=== PATIENT | male | born 1940 | race Caucasian/White ===

== ENCOUNTER 2016-11-06 07:14 | Day surgery (SDC) | payer MEDICARE ==
[~2016-11-06] VITALS: Ht 170.2 cm; Wt 88.5 kg
[2016-11-06 07:55] LABS: HEMOGLOBIN 12.9 g/dL (14.1-18.0); LYMPH # 1.3 K/mm3 (0.7-4.5); LYMPH % 19.1 % (10-50)
[2016-11-06 08:01] LABS: BUN 13 mg/dL (7-18); GFR (ESTIMATED) 53 ML/MIN (>60)
--- NOTE | 2016-11-06 10:22 | Operative Note ---
Pacemaker Procedure performed: Pacemaker placement Date of procedure: 11/06/16 Time: 1000 Preoperative Diagnosis: Symptomatic bradycardia Cardiac Arrest Indication for test: See above Complications: None EBL Less than 10 ml Technique: 1% Lidocaine with epinephrine used to anesthetize the left anterior aspect of the chest.Scalpel was used to make the initial cutaneous incision while electrocautery was used to dissect down into the fascia. The fascia was lifted off the pectoralis muscle and digitally manipulated creating a pocket for the pacemaker. The patient was then placed in Trendelenburg position and the subclavian vein was accessed via the Selinger technique. A 7 Tajik sheath was placed under fluoroscopic guidance into the subclavian vein. Following this, an additional wire was placed into the sheath. Now, with two wires inside the 7 [place] sheath, this sheath was removed, maintaining the two wires in the subclavian vein. The sheath and dilator was then placed over one of the wires while keeping the other wire in place within the subclavian vein. The dilator was removed from the sheath. Using fluoroscopic guidance, the ventricular lead was placed into the right ventricular apex, screwed and secured into place. Electronic interrogation proved acceptable thresholds and voltage within the lead. Using 3-0 silk, the ventricular lead was then secured into place. Lead was secured to the fascia using the 3-0 silk. Following this, the sheath was pealed away. An additional 7 Tajik fresh sheath and dilator was placed over the existing wire. Using fluoroscopic guidance, the atrial lead was then placed into the right atrial appendage and screwed and secured in place. Electrical interrogation demonstrated acceptable thresholds and voltage numbers. The atrial lead was then secured into place using 3-0 silk and then the lead was finally secured to the fascia. With both the atria and ventricular leads in place with acceptable thresholds and sensitivity, the atrial and ventricular leads were placed into the pacemaker generator. Pacemaker generator was then secured to the fascia using 3-0 silk. 1 gram of Ancef was used to flush the pocket. Following the pacemaker being secured to the fascia and in place, Monocryl was used to close the subcutaneous layers while radha were used to close the cutaneous layer. A pressure dressing was placed and the patient was transferred to the postop holding area in stable condition for postoperative care. Impression: Procedure 1. Pocket formation for PPM. 2. Placement of atrial sensing and pacing coil into the right atrial appendage. 3. Placement of ventricular sensing and pacing coil in the right ventricular apex. 4. Permanent PPM placement Interrogation: Generator [employer] Model # [id number] Serial # [id number] RA Model # [id number] Serial # [id number] P-wave 3.0 Impedance 560 Threshold 2.0 Pulse Width 0.4 mA RVA Model # [id number] Serial # [id number] R-wave >12 Impedance 730 Threshold 0.5 Pulse Width 0.4 mA Pacing Parameters: Mode: DDDR Base/Max Track: 70/120 Max Sensor No Diaphragmatic stimulation at 10 volts Plan: Routine post op care
--- NOTE | 2016-11-06 10:22 | Operative Note ---
Pacemaker Procedure performed: Pacemaker placement Date of procedure: 11/06/16 Time: 1000 Preoperative Diagnosis: Symptomatic bradycardia Cardiac Arrest Indication for test: See above Complications: None EBL Less than 10 ml Technique: 1% Lidocaine with epinephrine used to anesthetize the left anterior aspect of the chest.Scalpel was used to make the initial cutaneous incision while electrocautery was used to dissect down into the fascia. The fascia was lifted off the pectoralis muscle and digitally manipulated creating a pocket for the pacemaker. The patient was then placed in Trendelenburg position and the subclavian vein was accessed via the Selinger technique. A 7 Nigerian sheath was placed under fluoroscopic guidance into the subclavian vein. Following this, an additional wire was placed into the sheath. Now, with two wires inside the 7 Nigerian sheath, this sheath was removed, maintaining the two wires in the subclavian vein. The sheath and dilator was then placed over one of the wires while keeping the other wire in place within the subclavian vein. The dilator was removed from the sheath. Using fluoroscopic guidance, the ventricular lead was placed into the right ventricular apex, screwed and secured into place. Electronic interrogation proved acceptable thresholds and voltage within the lead. Using 3-0 silk, the ventricular lead was then secured into place. Lead was secured to the fascia using the 3-0 silk. Following this, the sheath was pealed away. An additional 7 Nigerian fresh sheath and dilator was placed over the existing wire. Using fluoroscopic guidance, the atrial lead was then placed into the right atrial appendage and screwed and secured in place. Electrical interrogation demonstrated acceptable thresholds and voltage numbers. The atrial lead was then secured into place using 3-0 silk and then the lead was finally secured to the fascia. With both the atria and ventricular leads in place with acceptable thresholds and sensitivity, the atrial and ventricular leads were placed into the pacemaker generator. Pacemaker generator was then secured to the fascia using 3-0 silk. 1 gram of Ancef was used to flush the pocket. Following the pacemaker being secured to the fascia and in place, Monocryl was used to close the subcutaneous layers while radha were used to close the cutaneous layer. A pressure dressing was placed and the patient was transferred to the postop holding area in stable condition for postoperative care. Impression: Procedure 1. Pocket formation for PPM. 2. Placement of atrial sensing and pacing coil into the right atrial appendage. 3. Placement of ventricular sensing and pacing coil in the right ventricular apex. 4. Permanent PPM placement Interrogation: Generator [employer] Model # [id number] Serial # [id number] RA Model # [id number] Serial # [id number] P-wave 3.0 Impedance 560 Threshold 2.0 Pulse Width 0.4 mA RVA Model # [id number] Serial # [id number] R-wave >12 Impedance 730 Threshold 0.5 Pulse Width 0.4 mA Pacing Parameters: Mode: DDDR Base/Max Track: 70/120 Max Sensor No Diaphragmatic stimulation at 10 volts Plan: Routine post op care
--- NOTE | 2016-11-06 12:38 | RADIOLOGY REPORT PS360 ---
CHEST-PORTABLE ORDERING PHYSICIAN : Eliazar Grimaldo MD PATIENT AGE: 76 years GENDER: Male INDICATION: PACEMAKER PLACEMENT Abnormal heart rhythm TECHNIQUE: AP portable upright CXR COMPARISON: No previous studies for comparison FINDINGS Pacemaker now evident overlying upper left chest. Atrial and ventricular leads appear intact on this AP portable study. No pneumothorax. No pleural effusion. Lungs appear clear. Slight lordotic projection on today's CXR. No CHF or vascular congestion Mild cardiomegaly noted. ----IMPRESSION: Pacemaker now in place. Appears satisfactory on this AP view Lungs clear no active disease. No pneumothorax Mild cardiomegaly.
[2016-11-06 13:43] VITALS: BP 154/78
--- NOTE | 2016-11-06 16:13 | RADIOLOGY REPORT PS360 ---
PACEMAKER/DEFIBRILLATOR ORDERING PHYSICIAN : Eliazar Grimaldo MD PATIENT AGE: 76 years GENDER: Male INDICATION: PACERMAKER placement by housing coordinator. Four Minute 58 seconds fluoroscopy time used by housing coordinator with this procedure TECHNIQUE: AP spot image from the fluoroscope during pacemaker placement. FINDINGS 2 images document the placement of the AV pacemaker. Both leads are identified they seem to be in grossly satisfactory position on this limited AP projection. Campaign Assistant in this regard. Graph the heart is mildly enlarged.
--- NOTE | 2016-11-06 16:13 | RADIOLOGY REPORT PS360 ---
PACEMAKER/DEFIBRILLATOR ORDERING PHYSICIAN : Eliazar Grimaldo MD PATIENT AGE: 76 years GENDER: Male INDICATION: PACERMAKER placement by electronics mechanic apprentice. Four Minute 58 seconds fluoroscopy time used by electronics mechanic apprentice with this procedure TECHNIQUE: AP spot image from the fluoroscope during pacemaker placement. FINDINGS 2 images document the placement of the AV pacemaker. Both leads are identified they seem to be in grossly satisfactory position on this limited AP projection. Vehicle Painter in this regard. Graph the heart is mildly enlarged.
== END 2016-11-06 12:36 | disposition home or self-care (01) ==
LOC: SDC 07:14
PROVIDERS: Internal Medicine
PROC: 02H63JZ Insertion of Pacemaker Lead into Right Atrium, Percutaneous Approach (ICD-10-PCS; 2016-11-06)
PROC: 02HK3JZ Insertion of Pacemaker Lead into Right Ventricle, Percutaneous Approach (ICD-10-PCS; 2016-11-06)
PROC: 0JH606Z Insertion of Pacemaker, Dual Chamber into Chest Subcutaneous Tissue and Fascia, Open Approach (ICD-10-PCS; principal; 2016-11-06 08:45)
DX: Z45.02 Encounter for adjustment and management of automatic implantable cardiac defibrillator (principal); I49.5 Sick sinus syndrome; R53.83 Other fatigue; R42 Dizziness and giddiness
CPT/HCPCS: C1785; C1898